=== PATIENT | male | born 1950 | race Caucasian/White ===

== ENCOUNTER → 2017-06-08 | Day surgery (SDC) | payer OTHER ==
[~2017-06-08] MED LIST: ACETAMINOPHEN 1000 MG/100 ML 100 ML IV ONE; BUPIVACAINE/EPINEPHRINE 0.25% PF 30 ML VIAL ONE; HYDROCORTISONE SOD SUCCINATE 100 MG VIAL ONE; KETOROLAC TROMETHAMINE 30 MG/ML (IVP) VIAL IV PUSH ONE; LACTATED RINGER'S 1000 ML INJ 1,000 ML ONE; LIDOCAINE 1%/EPINEPHrine 1:100,000 SOLN 30 ML VIAL ONE; MIDAZOLAM HCL 2 MG/2 ML VIAL ONE; ONDANSETRON HCL 4 MG/2 ML VIAL IV PUSH ONE; PROPOFOL 200 MG/20 ML AMP IV ONE; ceFAZolin INJ 1,000 MG VIAL ONE
--- NOTE | 2017-06-08 12:13 | TN ---
cc: ISAC LOGAN M.D. DATE OF SURGERY: 06/08/2017 PREOPERATIVE DIAGNOSIS Right inguinal hernia. cord lipoma POSTOPERATIVE DIAGNOSIS Right inguinal hernia. cord lipoma PROCEDURE Right inguinal hernia repair using modified Frederick technique. The patient did not want mesh. removal of cord lipoma ANESTHESIA General. SURGEON Dr. Logan. INDICATION This is a pleasant gentleman who has a right inguinal hernia, would like surgical repair without mesh. PROCEDURE The patient was taken to the operating room and placed in the supine position. After anesthesia time-out was done and preoperative antibiotics were given. Abdomen and groin is prepped with Betadine. We anesthetized the area with Marcaine solution and dissect down through Palmer's fascia identifying the external oblique aponeurosis which was incised. Cord structures surrounded with a Chato drain. Ilioinguinal nerve is preserved, is very small. We then identify the hernia sac and a cord lipoma, the cord lipoma is removed and the hernia sac dissected free from the surrounding cord structures. It is opened, contents are reduced. It is twisted upon itself and ligated with a 0-Ethibond and amputated. We then repair the mesh by bringing the conjoined tendon over to the pubic tubercle, Nam's ligament, the iliopubic tract out laterally, placed two stitches superior to the internal ring. We then irrigate, hemostasis is assured, I placed some local in the deep layers. We then closed the external oblique aponeurosis with 2-0 Vicryl, Palmer's with 2-0 Vicryl and skin with 4-0 Vicryl. Steri-Strips were applied. Sterile bandage was applied. The patient tolerated the procedure well and had no immediate postop complications. Isac Logan MD JDB/TLAlondra /11:37 AM /11:45 AM MTDPresley
== END | disposition home or self-care (01) ==
LOC: ESDC 09:04
PROVIDERS: ATTEND Surgery
DX: K40.90 Unilateral inguinal hernia, without obstruction or gangrene, not specified as recurrent (principal); D17.6 Benign lipomatous neoplasm of spermatic cord
CPT/HCPCS: 00830; 49505; 88302; 88304; J0131; J0690; J1720; J1885; J2250; J2405; J3010; J7120